=== PATIENT | male | born 1990 | race Caucasian/White ===

== ENCOUNTER → 2016-09-04 | Outpatient (REF) | payer OTHER ==
[2016-09-04 15:27] LABS: IMMUNOGLOBULIN G 1710 MG/DL (681-1648); IMMUNOGLOBULIN M 42.3 MG/DL (40-230)
[2016-09-09 00:06] LABS: SJOGREN'S ANTI SS-A <0.2 AI (0.0-0.9); SJOGREN'S ANTI SS-B <0.2 AI (0.0-0.9)
== END ==
LOC: M LAB REF 13:11
PROVIDERS: ATTEND Internal Medicine Pulmonary Disease
DX: J47.9 Bronchiectasis, uncomplicated (principal)

== ENCOUNTER → 2016-12-24 | Outpatient (CLI) | payer OTHER ==
[2016-12-24 13:43] LABS: WEIGHT OF SWEAT LFT ARM QNS MG; WEIGHT OF SWEAT RT ARM 21.1 MG
== END ==
LOC: M LAB 09:38
PROVIDERS: ATTEND Internal Medicine Pulmonary Disease
DX: J47.9 Bronchiectasis, uncomplicated (principal)

== ENCOUNTER → 2020-03-21 | Outpatient (REF) | payer OTHER | LOC: M SFHCADAM 11:30 | PROVIDERS: ATTEND Physician Assistant | DX: R05 Cough (principal); R06.02 Shortness of breath ==

== ENCOUNTER → 2020-05-03 | Outpatient (CLI) | payer OTHER ==
--- NOTE | 2020-05-03 17:01 | REP ---
INDICATION: J18.9 PNEUMONIA OF RUL. COMPARISON: None TECHNIQUE: Upright PA and lateral chest. FINDINGS: There is a focal density in the right lower lobe, nonspecific, infiltrate versus mass. The remainder of the lung ryder are clear but appear hyperinflated. There are no pleural effusions. Cardiac size is normal. The nino, mediastinum, and skeletal structures unremarkable. IMPRESSION: Focal density in the right lower lobe, nonspecific, infiltrate versus mass. <Electronically signed by Shukri King > 05/03/20 [id number]
== END ==
LOC: M ADAMS 15:53
PROVIDERS: ATTEND Physician Assistant
DX: J18.9 Pneumonia, unspecified organism (principal)

== ENCOUNTER → 2020-05-30 | Outpatient (CLI) | payer OTHER ==
[~2020-05-30] MED LIST: ISOVUE-370 76% 100ML VIAL As Ordered ONE
--- NOTE | 2020-05-30 17:12 | REP ---
INDICATION: ABN CHEST X RAY. COMPARISON: No prior chest CTs for comparison. Prior plain film examination of the chest of 05/03/2020 showed a right lower lobe density. TECHNIQUE: Standard helical technique after the intravenous administration of 100 cc Isovue 370. FINDINGS: There is right hilar and subcarinal adenopathy. There are borderline left hilar nodes. There are no pleural or pericardial effusions. The imaged upper abdomen and imaged osseous structures are within normal limits. Evaluation of the lung ryder shows rather extensive bronchiectatic changes in the right lower lobe with varying degrees of density filling and partially filling the ectatic bronchioles. IMPRESSION: Extensive focal right lower lobe bronchiectasis with secondary inspissated mucus/infection. Pulmonary consultation is recommended. <Electronically signed by Justino Lambert > 05/30/20 [id number]
== END ==
LOC: M RAD 16:25
PROVIDERS: ATTEND Physician Assistant
DX: J47.0 Bronchiectasis with acute lower respiratory infection (principal)
CPT/HCPCS: 71260; Q9967

== ENCOUNTER → 2020-06-13 | Outpatient (REF) | payer OTHER | LOC: M LAB REF 19:07 | PROVIDERS: ATTEND Nurse Practitioner Family | DX: J47.9 Bronchiectasis, uncomplicated (principal) ==

== ENCOUNTER → 2020-06-21 | Outpatient (CLI) | payer OTHER ==
--- NOTE | 2020-06-21 15:22 | PFTRPT ---
Height: 66.00 Inches Weight: 135.00 Lbs BSA: 1.69 Diagnosis: R05 DATE: 06/21/2020 ORDERING PHYSICIAN: ROSALINE Bowden Pre and post bronchodilator studies have excellent technical quality. Forced vital capacity is reduced. FEV1 is out of proportion. Obstructive index is therefore reduced. Expiratory limit of the flow-volume loop consistent with flow rate limitation. Borderline bronchodilator response is identified. Total lung capacity elevated. Residual volume consistent with significant air trapping. Diffusing capacity is normal and remains normal when corrected for alveolar volume. Hemoglobin is acceptable at 15.7. Airway resistance elevated with a concomitant decrease in airway conductance. IMPRESSION: At least moderate obstructive ventilatory impairment with underlying air trapping. Borderline bronchodilator response. Please correlate clinically. MTDD
--- NOTE | 2020-06-21 15:42 | REP ---
INDICATION: MODERATE PERSISTENT ASTHMA, UNCOMPLICATED/PFT APPT 1ST COMPARISON: 05/03/2020 TECHNIQUE: PA and lateral. FINDINGS: Right lower lobe opacity again noted but appears slightly improved. Remainder of lung ryder are clear. IMPRESSION: Improving right lower lobe pneumonia. Follow-up to resolution recommended. <Electronically signed by Michael Urena > 06/21/20 [id number]
== END ==
LOC: M CARPUL 14:35
PROVIDERS: ATTEND Nurse Practitioner Family
DX: R05 Cough (principal); J45.40 Moderate persistent asthma, uncomplicated

== ENCOUNTER → 2020-07-31 | Outpatient (CLI) | payer OTHER ==
--- NOTE | 2020-07-31 10:47 | REP ---
INDICATION: COUGH. COMPARISON: 05/03/2020 TECHNIQUE: PA and lateral FINDINGS: The cardiomediastinal silhouette is stable. The heart is not enlarged. The right lower lobe patchy opacities seen previously has increased in size and gotten more dense. There are no other lung field changes. The pleural angles remain sharp. The osseous structures remain intact. IMPRESSION: Worsened right lower lobe opacity. Consider contrast-enhanced CT of the chest at this time. <Electronically signed by Justino Lambert > 07/31/20 [id number]
== END ==
LOC: M ADAMS 10:09
PROVIDERS: ATTEND Psychiatry & Neurology Neurology
DX: R05 Cough (principal)

== ENCOUNTER → 2020-08-21 | Outpatient (CLI) | payer OTHER | LOC: M PLAIMG 13:34 | PROVIDERS: ATTEND Nurse Practitioner Family | DX: J47.9 Bronchiectasis, uncomplicated (principal) ==

== ENCOUNTER → 2020-10-16 | Outpatient (REF) | payer OTHER | LOC: M SFHCADAM 12:21 | PROVIDERS: ATTEND Physician Assistant Medical | DX: R05 Cough (principal) ==

== ENCOUNTER → 2021-02-04 | Outpatient (REF) | payer OTHER | LOC: M SFHCPLAZ 16:38 | PROVIDERS: ATTEND Physician Assistant | DX: J02.9 Acute pharyngitis, unspecified (principal) ==

== ENCOUNTER → 2022-08-26 | Outpatient (CLI) | payer OTHER | LOC: M PLAIMG 11:34 | PROVIDERS: ATTEND Internal Medicine Pulmonary Disease | DX: J47.9 Bronchiectasis, uncomplicated (principal) ==

== ENCOUNTER → 2022-09-17 | Outpatient (REF) | payer OTHER ==
[2022-09-17 13:01] LABS: BASO # 0.1 10^3/uL (0.0-0.2); EOS % 9.3 % (0.0-3.0); HEMATOCRIT 44.9 % (42.0-52.0); HEMOGLOBIN 14.6 g/dl (13.5-17.5); LYMPH # 2.9 10^3/uL (1.5-5.0); LYMPH % 26.8 % (24.0-44.0); MEAN CORPUSCULAR HEMOGLOBIN 30.4 pg (27.0-33.0); MEAN CORPUSCULAR HGB CONC 32.5 g/dl (32.0-36.5); MEAN CORPUSCULAR VOLUME 93.5 fl (80.0-96.0); MONO # 1.3 10^3/uL (0.0-0.8); MONO % 12.3 % (2.0-8.0); NEUTROPHILS # 5.4 10^3/uL (1.5-8.5); NEUTROPHILS % 50.1 % (36.0-66.0); PLATELET COUNT, AUTOMATED 310 10^3/uL (150-450); WHITE BLOOD COUNT 10.7 10^3/uL (4.0-10.0)
[2022-09-17 13:12] LABS: ALBUMIN 3.7 G/DL (3.2-5.2); ALKALINE PHOSPHATASE 43 U/L (46-116); ALT/SGPT 18 U/L (7.0-40); AST/SGOT < 8 U/L (<34); BILIRUBIN,TOTAL 0.3 MG/DL (0.3-1.2); BLOOD UREA NITROGEN 11 MG/DL (9-23); CALCIUM LEVEL 9.1 MG/DL (8.5-10.1); CARBON DIOXIDE LEVEL 29 MMOL/L (20-31); CHLORIDE LEVEL 106 MMOL/L (98-107); CHOLESTEROL LEVEL 197 MG/DL (<200); CREATININE FOR GFR 0.81 MG/DL (0.70-1.30); GLOMERULAR FILTRATION RATE > 60.0 (>60); GLUCOSE, FASTING 81 MG/DL (60-100); HDL CHOLESTEROL 41.9 MG/DL (>40); LDL CHOLESTEROL 121.3 MG/DL (<100); NON-HDL-C 155.1 MG/DL; POTASSIUM SERUM 4.2 MMOL/L (3.5-5.1); SODIUM LEVEL 141 MMOL/L (136-145); TOTAL PROTEIN 6.8 G/DL (5.7-8.2); TRIGLYCERIDES LEVEL 169 MG/DL (<150)
== END ==
LOC: M SFHCADAM 08:54
PROVIDERS: ATTEND Physician Assistant
DX: J45.40 Moderate persistent asthma, uncomplicated (principal); J30.89 Other allergic rhinitis

== ENCOUNTER → 2023-10-20 | Outpatient (REF) | payer OTHER | LOC: M SFHCADAM 15:53 | PROVIDERS: ATTEND Family Medicine | DX: R05.1 Acute cough (principal) ==

== ENCOUNTER → 2024-02-22 | Outpatient (CLI) | payer OTHER | LOC: M ADAMS 14:09 | PROVIDERS: ATTEND Physician Assistant | DX: J47.0 Bronchiectasis with acute lower respiratory infection (principal) ==